=== PATIENT | male | born 1945 | race Caucasian/White ===

== ENCOUNTER → 2017-01-30 | Outpatient (CLI) | payer MEDICARE | END | disposition home or self-care (01) | LOC: CFH 09:01 → EDSTATUS 09:30 | PROVIDERS: ATTEND Licensed Practical Nurse | DX: I70.0 Atherosclerosis of aorta (principal); Q25.46 Tortuous aortic arch; Z87.891 Personal history of nicotine dependence | CPT/HCPCS: 93978 ==

== ENCOUNTER 2018-08-06 14:02 | Observation (INO) | payer MEDICARE ==
[~2018-08-06] VITALS: Ht 180.3 cm; Wt 56.6 kg
[~2018-08-06 14:02] MED LIST: ACET325T14 PO; FOLI-17 PO; LEVO25TA2 PO; LORA1TAB PO; ONDA4TAB13 PO; SIMV10TA PO; THIA100T67 PO
[2018-08-06] MEDS ORDERED: LORazepam 1MG TABLET ONE (14:38)
[2018-08-06] MEDS ORDERED: LORazepam 1MG TABLET PO ONE (15:00)
[2018-08-06] MEDS ORDERED: ZIPRASIDONE 20 MG INJ IM ONE ×3 (15:04→16:30)
[2018-08-06 15:52] LABS: BASOPHILS # (AUTO) 0.05 x10^3/uL (0-0.1); BASOPHILS % (AUTO) 1 % (0-1); EOSINOPHILS # (AUTO) 0.14 x10^3/uL (0-0.4); EOSINOPHILS % (AUTO) 3 % (1-7); LYMPHOCYTES # (AUTO) 1.22 x10^3/uL (1-3.4); LYMPHOCYTES % (AUTO) 24 % (22-44); MD NO; MEAN CORPUSCULAR HEMOGLOBIN 33.6 pg (27.5-34.5); MEAN CORPUSCULAR VOLUME 95.9 fL (81-97); MEAN PLATELET VOLUME 6.1 fL (7.4-10.4); MONOCYTES # (AUTO) 0.61 x10^3/uL (0.2-0.8); MONOCYTES % (AUTO) 12 % (2-9); NEUTROPHILS # (AUTO) 2.99 x10^3/uL (1.8-6.8); NEUTROPHILS % (AUTO) 60 % (42-75); PLATELET COUNT 341 x10^3/uL (130-400); RED BLOOD COUNT 3.55 x10^6/uL (4.38-5.82); RED CELL DISTRIBUTION WIDTH 15.9 % (9.4-14.8)
[2018-08-06 16:04] LABS: ALANINE AMINOTRANSFERASE 26 U/L (12-78); ALBUMIN 3.2 g/dL (3.4-5.0); ANION GAP 7 mmol/L (5-15); CHLORIDE 106 mmol/L (98-107); CREATININE 0.69 mg/dL (0.7-1.3)
[2018-08-06 16:07] LABS: ALKALINE PHOSPHATASE 64 U/L (45-117); BILIRUBIN,TOTAL 0.3 mg/dL (0.2-1.0); TOTAL PROTEIN 6.2 g/dL (6.4-8.2)
[2018-08-06 16:18] LABS: MICROSCOPIC NOT IND
[2018-08-06 16:25] LABS: CULTURE INDICATED? NO
[2018-08-06] MEDS ORDERED: LABETALOL 5MG/ML, 20ML IVPush PRN (17:30)
[2018-08-06] MEDS ORDERED: LABETALOL 20 MG/4 ML IVPush PRN (17:30)
[2018-08-06] MEDS ORDERED: ONDANSETRON 2MG/ML, 2ML IVPush PRN (17:30)
[2018-08-06] MEDS ORDERED: ONDANSETRON ODT 4 MG PO PRN (17:30)
[2018-08-06 17:40] LABS: THYROID STIMULATING HORMONE 4.59 mIU/L (0.358-3.740)
[2018-08-06 19:03] VITALS: BP 149/99
[2018-08-06] MEDS: SENNA/DOCUSATE TABLET PO SCH (21:05)
[2018-08-06] MEDS: QUETIAPINE 25MG TABLET PO SCH (21:05)
[2018-08-06] MEDS: FAMOTIDINE 20 MG/2 ML IVPush SCH (21:06)
[2018-08-07] MEDS: QUETIAPINE 25MG TABLET PO ONE ×2 (01:03→06:14)
[2018-08-07 01:30] VITALS: BP 139/49
[2018-08-07] MEDS: LEVOTHYROXINE 25 MCG TABLET PO SCH (05:33)
[2018-08-07 06:04] LABS: BASOPHILS # (AUTO) 0.06 x10^3/uL (0-0.1); BASOPHILS % (AUTO) 2 % (0-1); EOSINOPHILS % (AUTO) 2 % (1-7); LYMPHOCYTES # (AUTO) 1.19 x10^3/uL (1-3.4); LYMPHOCYTES % (AUTO) 28 % (22-44); MD NO; MEAN CORPUSCULAR HEMOGLOBIN 33.8 pg (27.5-34.5); MEAN CORPUSCULAR HGB CONC 35.4 g/dL (33.2-36.2); MEAN CORPUSCULAR VOLUME 95.3 fL (81-97); MEAN PLATELET VOLUME 6.6 fL (7.4-10.4); MONOCYTES # (AUTO) 0.54 x10^3/uL (0.2-0.8); MONOCYTES % (AUTO) 13 % (2-9); NEUTROPHILS # (AUTO) 2.37 x10^3/uL (1.8-6.8); NEUTROPHILS % (AUTO) 56 % (42-75); PLATELET COUNT 328 x10^3/uL (130-400); RED BLOOD COUNT 3.66 x10^6/uL (4.38-5.82); RED CELL DISTRIBUTION WIDTH 16.1 % (9.4-14.8)
[2018-08-07 06:12] LABS: ALANINE AMINOTRANSFERASE 28 U/L (12-78); ALBUMIN 3.2 g/dL (3.4-5.0); ANION GAP 6 mmol/L (5-15); CALCIUM 9.3 mg/dL (8.5-10.1); CHLORIDE 107 mmol/L (98-107); CREATININE 0.69 mg/dL (0.7-1.3)
[2018-08-07 06:14] LABS: ALKALINE PHOSPHATASE 51 U/L (45-117); BILIRUBIN,TOTAL 0.5 mg/dL (0.2-1.0); TOTAL PROTEIN 6.1 g/dL (6.4-8.2)
[2018-08-07 07:40] VITALS: BP 126/90
[2018-08-07] MEDS: SENNA/DOCUSATE TABLET PO SCH ×2 (09:23→20:28)
[2018-08-07] MEDS: FAMOTIDINE 20 MG/2 ML IVPush SCH (09:23)
[2018-08-07] MEDS: QUETIAPINE 25MG TABLET PO SCH ×2 (09:23→20:28)
[2018-08-07] MEDS ORDERED: TAMSULOSIN 0.4 MG CAP.ER.24H ONE (10:15)
[2018-08-07] MEDS: TAMSULOSIN 0.4 MG CAP.ER.24H PO SCH (10:27)
[2018-08-07] MEDS: SODIUM CHLORIDE 0.9% 1,000 ML IV SCH ×2 (10:28→20:28)
[2018-08-07 13:50] VITALS: BP 137/93
[2018-08-07] MEDS ORDERED: ZIPRASIDONE 20 MG INJ IM ONE ×2 (18:08→18:15)
[2018-08-07] MEDS: FAMOTIDINE 20 MG TABLET PO SCH (20:28)
[2018-08-07 20:29] VITALS: BP 142/89
[2018-08-08 03:21] VITALS: BP 146/76
[2018-08-08] MEDS: LEVOTHYROXINE 25 MCG TABLET PO SCH (05:45)
[2018-08-08] MEDS: QUETIAPINE 25MG TABLET PO SCH ×2 (07:36→19:43)
[2018-08-08] MEDS: SENNA/DOCUSATE TABLET PO SCH ×2 (07:36→19:43)
[2018-08-08] MEDS: SODIUM CHLORIDE 0.9% 1,000 ML IV SCH ×2 (07:36→17:53)
[2018-08-08] MEDS: TAMSULOSIN 0.4 MG CAP.ER.24H PO SCH (07:37)
[2018-08-08] MEDS: FAMOTIDINE 20 MG TABLET PO SCH ×2 (07:38→19:43)
[2018-08-08 07:59] VITALS: BP 140/91
[2018-08-08 13:59] VITALS: BP 159/83
[2018-08-08 20:40] VITALS: BP 137/96
[2018-08-09] MEDS: SODIUM CHLORIDE 0.9% 1,000 ML IV SCH ×3 (01:17→21:44)
[2018-08-09 02:38] VITALS: BP 166/87
[2018-08-09] MEDS: LEVOTHYROXINE 25 MCG TABLET PO SCH (04:47)
[2018-08-09 05:22] LABS: ALBUMIN 3.1 g/dL (3.4-5.0); ANION GAP 8 mmol/L (5-15); CALCIUM 8.7 mg/dL (8.5-10.1); CHLORIDE 108 mmol/L (98-107); CREATININE 0.71 mg/dL (0.7-1.3)
[2018-08-09 05:23] LABS: BASOPHILS # (AUTO) 0.04 x10^3/uL (0-0.1); BASOPHILS % (AUTO) 1 % (0-1); EOSINOPHILS # (AUTO) 0.05 x10^3/uL (0-0.4); EOSINOPHILS % (AUTO) 1 % (1-7); LYMPHOCYTES # (AUTO) 0.83 x10^3/uL (1-3.4); LYMPHOCYTES % (AUTO) 11 % (22-44); MD NO; MEAN CORPUSCULAR HGB CONC 34.8 g/dL (33.2-36.2); MEAN PLATELET VOLUME 6.3 fL (7.4-10.4); MONOCYTES # (AUTO) 0.71 x10^3/uL (0.2-0.8); MONOCYTES % (AUTO) 10 % (2-9); NEUTROPHILS # (AUTO) 5.87 x10^3/uL (1.8-6.8); NEUTROPHILS % (AUTO) 78 % (42-75); PLATELET COUNT 351 x10^3/uL (130-400); RED BLOOD COUNT 4.12 x10^6/uL (4.38-5.82); RED CELL DISTRIBUTION WIDTH 14.8 % (9.4-14.8)
[2018-08-09 07:25] VITALS: BP 167/74
[2018-08-09] MEDS: SENNA/DOCUSATE TABLET PO SCH ×2 (07:47→21:43)
[2018-08-09] MEDS: LIDODERM 5% PATCH TD SCH (08:30)
[2018-08-09] MEDS: QUETIAPINE 25MG TABLET PO SCH ×2 (10:22→21:43)
[2018-08-09] MEDS: TAMSULOSIN 0.4 MG CAP.ER.24H PO SCH (10:22)
[2018-08-09] MEDS: FAMOTIDINE 20 MG TABLET PO SCH ×2 (10:22→21:43)
[2018-08-09] MEDS: DIVALPROEX 125 MG CAP.SPRINK PO SCH ×3 (11:47→21:43)
[2018-08-09 13:01] VITALS: BP 161/91
[2018-08-09] MEDS: ZIPRASIDONE 20 MG INJ IM PRN (16:26)
[2018-08-09 19:51] VITALS: BP 121/87
[2018-08-10 00:26] VITALS: BP 113/79
[2018-08-10] MEDS: LEVOTHYROXINE 25 MCG TABLET PO SCH (05:42)
[2018-08-10 06:56] VITALS: BP 122/84
[2018-08-10] MEDS: SENNA/DOCUSATE TABLET PO SCH ×2 (08:43→19:21)
[2018-08-10] MEDS: QUETIAPINE 25MG TABLET PO SCH ×2 (08:43→19:21)
[2018-08-10] MEDS: TAMSULOSIN 0.4 MG CAP.ER.24H PO SCH (08:43)
[2018-08-10] MEDS: SODIUM CHLORIDE 0.9% 1,000 ML IV SCH ×2 (08:43→18:04)
[2018-08-10] MEDS: DIVALPROEX 125 MG CAP.SPRINK PO SCH ×3 (08:43→19:21)
[2018-08-10] MEDS: FAMOTIDINE 20 MG TABLET PO SCH ×2 (08:43→19:21)
[2018-08-10] MEDS: LIDODERM 5% PATCH TD SCH (08:51)
[2018-08-10 13:44] VITALS: BP 118/85
[2018-08-10] MEDS: ZIPRASIDONE 20 MG INJ IM PRN (14:10)
[2018-08-10 18:38] VITALS: BP 124/77
[2018-08-11 00:27] VITALS: BP 125/73
[2018-08-11] MEDS: SODIUM CHLORIDE 0.9% 1,000 ML IV SCH ×3 (04:09→23:08)
[2018-08-11] MEDS: LEVOTHYROXINE 25 MCG TABLET PO SCH (05:06)
[2018-08-11 07:30] VITALS: BP 135/93
[2018-08-11] MEDS: TAMSULOSIN 0.4 MG CAP.ER.24H PO SCH (08:23)
[2018-08-11] MEDS: SENNA/DOCUSATE TABLET PO SCH ×2 (08:23→21:00)
[2018-08-11] MEDS: DIVALPROEX 125 MG CAP.SPRINK PO SCH ×3 (08:23→17:07)
[2018-08-11] MEDS: FAMOTIDINE 20 MG TABLET PO SCH ×2 (08:23→22:16)
[2018-08-11] MEDS: QUETIAPINE 25MG TABLET PO SCH ×2 (08:24→17:07)
[2018-08-11] MEDS: LIDODERM 5% PATCH TD SCH (08:30)
[2018-08-11 14:20] VITALS: BP 111/70
[2018-08-11 19:36] VITALS: BP 137/80
[2018-08-12 01:04] VITALS: BP 133/86
[2018-08-12] MEDS: ZIPRASIDONE 20 MG INJ IM PRN ×2 (03:26→18:32)
[2018-08-12] MEDS: LEVOTHYROXINE 25 MCG TABLET PO SCH (06:30)
[2018-08-12 08:10] VITALS: BP 118/91
[2018-08-12] MEDS: LIDODERM 5% PATCH TD SCH (08:30)
[2018-08-12] MEDS: FINASTERIDE 5 MG TABLET PO SCH ×2 (08:42→09:00)
[2018-08-12] MEDS: TAMSULOSIN 0.4 MG CAP.ER.24H PO SCH (08:42)
[2018-08-12] MEDS: DIVALPROEX 125 MG CAP.SPRINK PO SCH ×3 (08:42→16:00)
[2018-08-12] MEDS: QUETIAPINE 25MG TABLET PO SCH ×2 (08:42→16:00)
[2018-08-12] MEDS: SENNA/DOCUSATE TABLET PO SCH ×2 (08:42→19:38)
[2018-08-12] MEDS: FAMOTIDINE 20 MG TABLET PO SCH ×2 (08:42→19:38)
[2018-08-12 13:55] VITALS: BP 112/69
[2018-08-12] MEDS ORDERED: QUETIAPINE 25MG TABLET PO SCH (16:00)
[2018-08-12 20:03] VITALS: BP 101/62
[2018-08-13 00:43] VITALS: BP 114/73
[2018-08-13] MEDS: LEVOTHYROXINE 25 MCG TABLET PO SCH (05:19)
[2018-08-13 07:25] VITALS: BP 136/88
[2018-08-13] MEDS: LIDODERM 5% PATCH TD SCH (08:30)
[2018-08-13] MEDS: TAMSULOSIN 0.4 MG CAP.ER.24H PO SCH (08:35)
[2018-08-13] MEDS: DIVALPROEX 125 MG CAP.SPRINK PO SCH ×3 (08:35→16:09)
[2018-08-13] MEDS: SENNA/DOCUSATE TABLET PO SCH ×2 (08:35→19:49)
[2018-08-13] MEDS: FINASTERIDE 5 MG TABLET PO SCH (08:35)
[2018-08-13] MEDS: QUETIAPINE 25MG TABLET PO SCH ×2 (08:35→16:09)
[2018-08-13] MEDS: FAMOTIDINE 20 MG TABLET PO SCH ×2 (08:35→19:49)
[2018-08-13] MEDS: ZIPRASIDONE 20 MG INJ IM PRN ×2 (11:29→23:35)
[2018-08-13 13:32] VITALS: BP 108/68
[2018-08-13 19:35] VITALS: BP 94/60
[2018-08-14 02:57] VITALS: BP 133/85
[2018-08-14] MEDS: LEVOTHYROXINE 25 MCG TABLET PO SCH (05:57)
[2018-08-14 07:52] VITALS: BP 129/85
[2018-08-14] MEDS: LIDODERM 5% PATCH TD SCH (07:52)
[2018-08-14] MEDS: DIVALPROEX 125 MG CAP.SPRINK PO SCH ×2 (08:28→11:46)
[2018-08-14] MEDS: SENNA/DOCUSATE TABLET PO SCH (08:29)
[2018-08-14] MEDS: FAMOTIDINE 20 MG TABLET PO SCH (08:29)
[2018-08-14] MEDS: TAMSULOSIN 0.4 MG CAP.ER.24H PO SCH (08:29)
[2018-08-14] MEDS: FINASTERIDE 5 MG TABLET PO SCH (08:29)
[2018-08-14] MEDS: QUETIAPINE 25MG TABLET PO SCH (08:33)
[2018-08-14] MEDS: ZIPRASIDONE 20 MG INJ IM PRN (12:07)
[2018-08-14 12:56] VITALS: BP 117/74
[2018-08-14] MEDS ORDERED: DIVA125C2 PO (13:56)
[2018-08-14] MEDS ORDERED: FINA5TAB4 PO (13:56)
[2018-08-14] MEDS ORDERED: QUET25TA PO (13:56)
[2018-08-14] MEDS ORDERED: TAMS-11 PO (13:56)
== END 2018-08-14 16:17 ==
LOC: ED 14:11 → 3NE 17:14 → INTOOBSV 17:14
PROVIDERS: ADMIT Hospitalist; ATTEND Family Medicine
DX: F03.91 Unspecified dementia, unspecified severity, with behavioral disturbance (principal); G93.40 Encephalopathy, unspecified; E03.9 Hypothyroidism, unspecified; E78.5 Hyperlipidemia, unspecified; G30.9 Alzheimer's disease, unspecified; Z66 Do not resuscitate; Z78.1 Physical restraint status; Z79.899 Other long term (current) drug therapy
CPT/HCPCS: 36415; 70450; 80048; 80053; 81003; 82040; 83735; 84100; 84439; 84443; 85025; 93005; 96372; 96374; 96376; 99284; G0378; J3486; J3490; J7030